=== PATIENT | female | born 1985 | race Caucasian/White ===

== ENCOUNTER 2017-02-01 05:46 | Inpatient (IN) | payer BC, OTHER ==
[~2017-02-01] VITALS: Ht 165.1 cm; Wt 91.6 kg
[2017-02-01 06:31] LABS: HEMOGLOBIN 12.3 gm/dl (12.3-15.3); RED BLOOD COUNT 4.62 M/UL (4.00-5.10); WHITE BLOOD COUNT 12.8 K/UL (4.5-11.0)
[2017-02-02 02:52] LABS: HEMOGLOBIN 9.9 gm/dl (12.3-15.3)
== END 2017-02-03 15:50 | disposition home or self-care (01) | DRG 774 ==
LOC: OB 05:46
PROVIDERS: Obstetrics & Gynecology; ADMIT Obstetrics & Gynecology
PROC: 10907ZC Drainage of Amniotic Fluid, Therapeutic from Products of Conception, Via Natural or Artificial Opening (ICD-10-PCS; principal; 2017-02-01)
PROC: 10E0XZZ Delivery of Products of Conception, External Approach (ICD-10-PCS; 2017-02-01)
PROC: 3E033VJ Introduction of Other Hormone into Peripheral Vein, Percutaneous Approach (ICD-10-PCS; 2017-02-01)
PROC: 0HQ9XZZ Repair Perineum Skin, External Approach (ICD-10-PCS; 2017-02-01)
PROC: 3E0234Z Introduction of Serum, Toxoid and Vaccine into Muscle, Percutaneous Approach (ICD-10-PCS; 2017-02-02)
DX: O10.92 Unspecified pre-existing hypertension complicating childbirth (principal); O24.425 Gestational diabetes mellitus in childbirth, controlled by oral hypoglycemic drugs; D64.9 Anemia, unspecified; Z3A.40 40 weeks gestation of pregnancy; Z37.0 Single live birth; O99.019 Anemia complicating pregnancy, unspecified trimester; O48.0 Post-term pregnancy; Z23 Encounter for immunization; O70.0 First degree perineal laceration during delivery
CPT/HCPCS: 36415; 51702; 81001; 82800; 82962; 85014; 85018; 85025; 90715; J2590; J2795; J7120